=== PATIENT | male | born 1945 | race Caucasian/White ===

== ENCOUNTER 2024-11-22 17:36 | Inpatient (IN) ==
[2024-11-22] MEDS ORDERED: IOPAMIDOL 100 ML BOTTLE IV ONE (17:37)
[2024-11-22] MEDS: 0.9 % SODIUM CHLORIDE 1,000 ML IV ONE (18:20)
[2024-11-22 18:38] LABS: Basophils # (Auto) 0.02 K/mcL (0.00-0.30); Basophils % (Auto) 0.2 % (0.0-2.0); Eosinophils # (Auto) 0.07 K/mcL (0.00-0.70); Eosinophils % (Auto) 0.6 % (0.0-7.0); Hematocrit 41.8 % (40.1-51.0); Hemoglobin 13.9 g/dL (13.7-17.5); Lymphocytes # (Auto) 1.09 K/mcL (1.50-4.80); Mean Cell Volume 93.5 fL (80.0-100.0); Mean Corpuscular HGB Conc 33.3 g/dL (31.0-36.0); Mean Platelet Volume 9.3 fL (8.8-12.5); Monocytes # (Auto) 0.82 K/mcL (0.10-0.90); Monocytes % (Auto) 7.6 % (1.0-12.0); Neutrophils % (Auto) 81.3 % (38.0-78.0); Platelet Count 264 K/mcL (140-440); RBC 4.47 M/mcL (4.63-6.08); Red Cell Distribution Width 13.8 % (11.5-14.5); WBC 10.9 K/mcL (4.5-11.0)
[2024-11-22 18:39] LABS: Appearance,Urine Clear (Clear); Bilirubin,Urine Negative (Negative); Color,Urine Yellow; Glucose,Urine (UA) Negative (Negative); Ketones,Urine Negative (Negative); Leukocyte Esterase,Urine Trace /uL (Negative); Nitrate,Urine Negative (Negative); Protein,Urine Negative (Negative); Specific Gravity,Urine 1.015 (1.000-1.035); Urine Blood Negative ery/mcL (Negative); Urine RBC 1 /hpf (0-3); Urine Squamous Epithelial Cell 9 /hpf (0-4); Urine WBC 1 /hpf (0-4); Urobilinogen,Urine Normal
[2024-11-22 18:41] LABS: ALT/SGPT 43 U/L (<40); AST/SGOT 35 U/L (<40); Albumin 3.4 gm/dL (3.2-5.2); Albumin/Globulin Ratio 0.9 (1.0-2.3); Alkaline Phosphatase 65 U/L (39-117); Bilirubin,Total 0.5 mg/dL (0.1-1.0); Blood Urea Nitrogen 10 mg/dL (8-23); Calcium 8.8 mg/dL (8.6-10.4); Carbon Dioxide 20 mmol/L (22-30); Chloride 102 mmol/L (96-108); Globulin 3.7 gm/dL (2.2-3.7); Glomerular Filtration Rate 72; Glucose 97 mg/dL (70-105); Potassium 4.2 mmol/L (3.3-5.1); Sodium 136 mmol/L (133-145)
[2024-11-22] MEDS: PIPERACILLIN SODIUM/TAZOBACTAM 3.375 GM in DEXTROSE 5% IN WATER 50 ML IV ONE (20:34)
[2024-11-22] MEDS: KETOROLAC 15 MG/ML VIAL IV ONE (20:35)
[2024-11-22] MEDS: ACETAMINOPHEN 325 MG TABLET PO ONE (20:35)
[2024-11-22] MEDS: VANCOMYCIN 1 GM VIAL IP SCH (21:05)
[2024-11-22] MEDS: VANCOMYCIN 1,000 MG in 0.9 % SODIUM CHLORIDE 250 ML IV ONE (21:17)
[2024-11-23] MEDS ORDERED: SENNOSIDES 1 TABLET PO PRN (00:13)
[2024-11-23] MEDS ORDERED: LACTULOSE 20 GM/30 ML ORAL.SOL PO PRN (00:13)
[2024-11-23] MEDS ORDERED: ONDANSETRON 4 MG/2 ML VIAL IV PRN (00:13)
[2024-11-23] MEDS: 0.9 % SODIUM CHLORIDE 1,000 ML IV SCH (00:25)
[2024-11-23] MEDS: CEFEPIME 1 GM VIAL ONE (00:38)
[2024-11-23] MEDS: VANCOMYCIN PER PHARMACY IV ONE (00:39)
[2024-11-23] MEDS: CEFEPIME 2 GM VIAL IV SCH ×2 (00:39→08:48)
[2024-11-23] MEDS: 0.9 % SODIUM CHLORIDE 10 ML SYRINGE IV SCH (05:03)
[2024-11-23 05:44] LABS: Basophils # (Auto) 0.04 K/mcL (0.00-0.30); Basophils % (Auto) 0.5 % (0.0-2.0); Eosinophils % (Auto) 1.2 % (0.0-7.0); Hematocrit 38.8 % (40.1-51.0); Hemoglobin 12.8 g/dL (13.7-17.5); Lymphocytes # (Auto) 1.15 K/mcL (1.50-4.80); Lymphocytes % (Auto) 14.3 % (15.5-49.0); Mean Cell Volume 94.2 fL (80.0-100.0); Mean Platelet Volume 9.6 fL (8.8-12.5); Monocytes # (Auto) 0.69 K/mcL (0.10-0.90); Monocytes % (Auto) 8.6 % (1.0-12.0); Platelet Count 217 K/mcL (140-440); RBC 4.12 M/mcL (4.63-6.08); Red Cell Distribution Width 13.9 % (11.5-14.5)
[2024-11-23 06:01] LABS: ALT/SGPT 36 U/L (<40); AST/SGOT 26 U/L (<40); Albumin 3.1 gm/dL (3.2-5.2); Albumin/Globulin Ratio 0.9 (1.0-2.3); Alkaline Phosphatase 52 U/L (39-117); Bilirubin,Direct 0.2 mg/dL (<0.3); Bilirubin,Total 0.4 mg/dL (0.1-1.0); Blood Urea Nitrogen 12 mg/dL (8-23); Calcium 8.2 mg/dL (8.6-10.4); Carbon Dioxide 20 mmol/L (22-30); Chloride 107 mmol/L (96-108); Globulin 3.3 gm/dL (2.2-3.7); Glomerular Filtration Rate 72; Glucose 104 mg/dL (70-105); Lactate Dehydrogenase 182 U/L (135-225); Phosphorous 2.2 mg/dL (2.5-4.5); Potassium 3.7 mmol/L (3.3-5.1); Sodium 139 mmol/L (133-145); Triglycerides 101 mg/dL (<150); Uric Acid 5.3 mg/dL (2.5-8.0)
[2024-11-23] MEDS ORDERED: VANCOMYCIN PER PHARMACY IV SCH (07:45)
[2024-11-23] MEDS ORDERED: METHOCARBAMOL 750 MG TABLET PO PRN (08:00)
[2024-11-23] MEDS ORDERED: NAPROXEN 500 MG TABLET PO SCH (08:00)
[2024-11-23] MEDS ORDERED: PRAMIPEXOLE 0.25 MG TABLET PO SCH (08:00)
[2024-11-23] MEDS: DOCUSATE SODIUM 100 MG CAPSULE PO SCH (08:48)
[2024-11-23] MEDS: METOPROLOL SUCCINATE 50 MG TAB.XL.24H PO SCH (08:49)
[2024-11-23] MEDS: ATORVASTATIN 20 MG TABLET PO SCH (08:49)
[2024-11-23] MEDS: APIXABAN 5 MG TABLET PO SCH (08:49)
[2024-11-23] MEDS: GABAPENTIN 300 MG CAPSULE PO SCH (08:49)
[2024-11-23] MEDS: VANCOMYCIN 1,250 MG in 0.9 % SODIUM CHLORIDE 500 ML IV SCH (08:52)
[2024-11-23] MEDS: ACETAMINOPHEN 325 MG TABLET PO PRN (20:05)
[2024-11-23] MEDS: TAMSULOSIN 0.4 MG CAPSULE PO SCH (20:06)
[2024-11-23] MEDS: ZOLPIDEM 5 MG TABLET PO PRN (20:06)
[2024-11-24 06:14] LABS: Basophils # (Auto) 0.03 K/mcL (0.00-0.30); Basophils % (Auto) 0.4 % (0.0-2.0); Eosinophils # (Auto) 0.15 K/mcL (0.00-0.70); Eosinophils % (Auto) 2.1 % (0.0-7.0); Hematocrit 38.2 % (40.1-51.0); Hemoglobin 12.3 g/dL (13.7-17.5); Lymphocytes # (Auto) 1.48 K/mcL (1.50-4.80); Lymphocytes % (Auto) 20.9 % (15.5-49.0); Mean Cell Volume 95.5 fL (80.0-100.0); Mean Corpuscular HGB Conc 32.2 g/dL (31.0-36.0); Mean Platelet Volume 10.1 fL (8.8-12.5); Monocytes # (Auto) 0.58 K/mcL (0.10-0.90); Monocytes % (Auto) 8.2 % (1.0-12.0); Neutrophils % (Auto) 68.1 % (38.0-78.0); Platelet Count 223 K/mcL (140-440); Red Cell Distribution Width 13.9 % (11.5-14.5); WBC 7.1 K/mcL (4.5-11.0)
[2024-11-24 07:17] LABS: ALT/SGPT 31 U/L (<40); AST/SGOT 31 U/L (<40); Albumin 2.9 gm/dL (3.2-5.2); Albumin/Globulin Ratio 0.9 (1.0-2.3); Alkaline Phosphatase 52 U/L (39-117); Bilirubin,Direct < 0.2 mg/dL (0-0.3); Bilirubin,Total 0.2 mg/dL (0.1-1.0); Blood Urea Nitrogen 8 mg/dL (8-23); Calcium 8.4 mg/dL (8.6-10.4); Carbon Dioxide 20 mmol/L (22-30); Chloride 114 mmol/L (96-108); Globulin 3.4 gm/dL (2.2-3.7); Glomerular Filtration Rate 82; Glucose 90 mg/dL (70-105); Lactate Dehydrogenase 249 U/L (135-225); Phosphorous 2.7 mg/dL (2.5-4.5); Potassium 4.2 mmol/L (3.3-5.1); Sodium 144 mmol/L (133-145); Triglycerides 107 mg/dL (<150); Uric Acid 4.8 mg/dL (2.5-8.0)
[2024-11-24] MEDS: FLU VACC TS2024-25(65YR UP)/PF 180 MCG/0.5 ML SYRINGE IM ONE (09:29)
[2024-11-24] MEDS: cefTRIAXone 2 GM in DEXTROSE 5% IN WATER 50 ML IV SCH (11:20)
[2024-11-24] MEDS: AMPICILLIN SODIUM 2 GM in 0.9 % SODIUM CHLORIDE 100 ML IV SCH (11:51)
[2024-11-25 06:51] LABS: Basophils # (Auto) 0.04 K/mcL (0.00-0.30); Basophils % (Auto) 0.5 % (0.0-2.0); Eosinophils % (Auto) 2.5 % (0.0-7.0); Hematocrit 39.5 % (40.1-51.0); Hemoglobin 12.7 g/dL (13.7-17.5); Lymphocytes # (Auto) 1.54 K/mcL (1.50-4.80); Lymphocytes % (Auto) 19.3 % (15.5-49.0); Mean Cell Volume 97.1 fL (80.0-100.0); Mean Corpuscular HGB Conc 32.2 g/dL (31.0-36.0); Mean Platelet Volume 9.8 fL (8.8-12.5); Monocytes # (Auto) 0.58 K/mcL (0.10-0.90); Monocytes % (Auto) 7.3 % (1.0-12.0); Neutrophils % (Auto) 70.1 % (38.0-78.0); Platelet Count 254 K/mcL (140-440); RBC 4.07 M/mcL (4.63-6.08); Red Cell Distribution Width 13.7 % (11.5-14.5)
[2024-11-25 07:35] LABS: ALT/SGPT 27 U/L (<40); AST/SGOT 26 U/L (<40); Albumin/Globulin Ratio 0.9 (1.0-2.3); Alkaline Phosphatase 52 U/L (39-117); Bilirubin,Direct < 0.2 mg/dL (0-0.3); Bilirubin,Total < 0.2 mg/dL (0.1-1.0); Blood Urea Nitrogen 8 mg/dL (8-23); Calcium 8.6 mg/dL (8.6-10.4); Carbon Dioxide 19 mmol/L (22-30); Chloride 108 mmol/L (96-108); Globulin 3.4 gm/dL (2.2-3.7); Glomerular Filtration Rate 82; Glucose 100 mg/dL (70-105); Lactate Dehydrogenase 229 U/L (135-225); Sodium 141 mmol/L (133-145); Triglycerides 129 mg/dL (<150); Uric Acid 4.5 mg/dL (2.5-8.0)
[2024-11-26] MEDS ORDERED: IOPAMIDOL 100 ML BOTTLE IV ONE (14:59)
[2024-11-28 07:08] LABS: C-Reactive Protein 1.16 mg/dL (0.03-0.80)
[2024-11-28 07:09] LABS: ALT/SGPT 43 U/L (<40); AST/SGOT 41 U/L (<40); Albumin 3.2 gm/dL (3.2-5.2); Albumin/Globulin Ratio 0.9 (1.0-2.3); Alkaline Phosphatase 57 U/L (39-117); Bilirubin,Direct < 0.2 mg/dL (0-0.3); Bilirubin,Total 0.2 mg/dL (0.1-1.0); Blood Urea Nitrogen 9 mg/dL (8-23); Calcium 9.2 mg/dL (8.6-10.4); Carbon Dioxide 24 mmol/L (22-30); Chloride 108 mmol/L (96-108); Globulin 3.4 gm/dL (2.2-3.7); Glomerular Filtration Rate 82; Glucose 99 mg/dL (70-105); Lactate Dehydrogenase 200 U/L (135-225); Phosphorous 2.6 mg/dL (2.5-4.5); Sodium 143 mmol/L (133-145); Triglycerides 187 mg/dL (<150); Uric Acid 4.6 mg/dL (2.5-8.0)
[2024-11-28 07:18] LABS: Basophils # (Auto) 0.05 K/mcL (0.00-0.30); Basophils % (Auto) 0.7 % (0.0-2.0); Eosinophils # (Auto) 0.27 K/mcL (0.00-0.70); Eosinophils % (Auto) 3.9 % (0.0-7.0); Hematocrit 39.9 % (40.1-51.0); Hemoglobin 12.9 g/dL (13.7-17.5); Lymphocytes # (Auto) 1.35 K/mcL (1.50-4.80); Lymphocytes % (Auto) 19.4 % (15.5-49.0); Mean Cell Volume 96.1 fL (80.0-100.0); Mean Corpuscular HGB Conc 32.3 g/dL (31.0-36.0); Mean Platelet Volume 9.8 fL (8.8-12.5); Monocytes # (Auto) 0.55 K/mcL (0.10-0.90); Monocytes % (Auto) 7.9 % (1.0-12.0); Neutrophils % (Auto) 67.2 % (38.0-78.0); Platelet Count 245 K/mcL (140-440); RBC 4.15 M/mcL (4.63-6.08)
[2024-11-28 07:40] LABS: Erythrocyte Sedimentation Rate 61 mm/hr (0-20)
[2024-11-28] MEDS ORDERED: LIDOCAINE 1% 10 ML VIAL SQ ONE (14:09)
[2024-11-28] MEDS ORDERED: SODIUM CHLORIDE IRRIG SOLUTION 250 ML BOTTLE IRR ONE (14:09)
[2024-11-28 16:24] VITALS: TEMP 98.1; O2SAT 94
[2024-11-28] MEDS ORDERED: 0.9 % SODIUM CHLORIDE 10 ML SYRINGE IV SCH (21:00)
== END 2024-11-28 15:39 | DRG 289 ==
LOC: ED 17:36 → ICU 11-23 → MEDSUR 11-27 21:26
PROVIDERS: ADMIT Internal Medicine; ATTEND Internal Medicine

== ENCOUNTER 2025-08-10 17:29 | Inpatient (IN) ==
[2025-08-10] MEDS: cefTRIAXone 1 GM VIAL IV ONE (17:50)
[2025-08-10] MEDS: ACETAMINOPHEN 1,000 MG/100 ML BAG IV ONE (17:50)
[2025-08-10] MEDS: 0.9 % SODIUM CHLORIDE 1,000 ML IV ONE (17:52)
[2025-08-10] MEDS: IPRATROPIUM/ALBUTEROL 3 ML AMPUL.NEB NEB ONE (18:10)
[2025-08-10 18:32] LABS: ALT/SGPT 9 U/L (<40); AST/SGOT 23 U/L (<40); Albumin 4.5 gm/dL (3.2-5.2); Albumin/Globulin Ratio 1.3 (1.0-2.3); Alkaline Phosphatase 133 U/L (39-117); Anion Gap 16.2 (8.0-16.0); Bilirubin,Total 0.5 mg/dL (0.1-1.0); Blood Urea Nitrogen 7 mg/dL (8-23); Calcium 9.5 mg/dL (8.6-10.4); Carbon Dioxide 20 mmol/L (22-30); Chloride 102 mmol/L (96-108); Globulin 3.4 gm/dL (2.2-3.7); Glucose 113 mg/dL (70-105); Potassium 3.3 mmol/L (3.3-5.1); Sodium 139 mmol/L (133-145)
[2025-08-10 18:41] LABS: Basophils # (Auto) 0.03 K/mcL (0.00-0.30); Basophils % (Auto) 0.3 % (0.0-2.0); Eosinophils # (Auto) 0.04 K/mcL (0.00-0.70); Eosinophils % (Auto) 0.4 % (0.0-7.0); Hematocrit 46.6 % (40.1-51.0); Hemoglobin 15.0 g/dL (13.7-17.5); Lymphocytes # (Auto) 0.36 K/mcL (1.50-4.80); Lymphocytes % (Auto) 3.2 % (15.5-49.0); Mean Corpuscular HGB Conc 32.2 g/dL (31.0-36.0); Monocytes # (Auto) 0.62 K/mcL (0.10-0.90); Monocytes % (Auto) 5.4 % (1.0-12.0); Neutrophils % (Auto) 90.5 % (38.0-78.0); Platelet Count 201 K/mcL (140-440); RBC 4.86 M/mcL (4.63-6.08); WBC 11.4 K/mcL (4.5-11.0)
[2025-08-10] MEDS: LACTATED RINGERS 1,000 ML IV SCH (19:09)
[2025-08-10] MEDS: IPRATROPIUM/ALBUTEROL 3 ML AMPUL.NEB NEB SCH (19:14)
[2025-08-10 20:06] LABS: Bilirubin,Urine NEGATIVE (Negative); Color,Urine LT. YELLOW; Glucose,Urine (UA) NEGATIVE (Negative); Ketones,Urine NEGATIVE (Negative); Leukocyte Esterase,Urine NEGATIVE /uL (Negative); Mucus,Urine Mod /hpf; PH,Urine 5.5 (5.0-9.0); Protein,Urine NEGATIVE (Negative); Specific Gravity,Urine 1.020 (1.000-1.035); Urobilinogen,Urine 0.2 mg/dL
[2025-08-10] MEDS ORDERED: ONDANSETRON 4 MG/2 ML VIAL IV PRN (20:32)
[2025-08-10] MEDS ORDERED: ACETAMINOPHEN 1,000 MG/100 ML BAG IV PRN (20:32)
[2025-08-10] MEDS ORDERED: MAG HYDROX/AL HYDROX/SIMETH 30 ML ORAL.SUSP PO PRN (20:32)
[2025-08-10] MEDS ORDERED: SENNOSIDES 1 TABLET PO PRN (20:32)
[2025-08-10] MEDS ORDERED: POLYETHYLENE GLYCOL 3350 17 GM PACKET PO PRN (20:32)
[2025-08-10] MEDS ORDERED: METHOCARBAMOL 750 MG TABLET PO PRN (22:06)
[2025-08-10] MEDS: DOXYCYCLINE 100 MG in DEXTROSE 5% IN WATER 100 ML IV SCH (22:40)
[2025-08-10] MEDS: LACTATED RINGERS 1,000 ML IV ONE (22:41)
[2025-08-10] MEDS: 0.9 % SODIUM CHLORIDE 10 ML SYRINGE IV SCH (22:42)
[2025-08-10] MEDS: APIXABAN 5 MG TABLET PO SCH (22:44)
[2025-08-11 05:41] LABS: Basophils # (Auto) 0.01 K/mcL (0.00-0.30); Basophils % (Auto) 0.1 % (0.0-2.0); Eosinophils # (Auto) 0.01 K/mcL (0.00-0.70); Eosinophils % (Auto) 0.1 % (0.0-7.0); Hematocrit 43.7 % (40.1-51.0); Hemoglobin 13.7 g/dL (13.7-17.5); Lymphocytes # (Auto) 0.25 K/mcL (1.50-4.80); Lymphocytes % (Auto) 1.5 % (15.5-49.0); Mean Corpuscular HGB Conc 31.4 g/dL (31.0-36.0); Monocytes # (Auto) 0.47 K/mcL (0.10-0.90); Monocytes % (Auto) 2.9 % (1.0-12.0); Neutrophils % (Auto) 95.1 % (38.0-78.0); Platelet Count 184 K/mcL (140-440); RBC 4.46 M/mcL (4.63-6.08); WBC 16.4 K/mcL (4.5-11.0)
[2025-08-11 06:03] LABS: Phosphorous 3.2 mg/dL (2.5-4.5)
[2025-08-11 06:06] LABS: C-Reactive Protein 4.78 mg/dL (0.03-0.80)
[2025-08-11 06:50] LABS: Anion Gap 13.0 (8.0-16.0); Blood Urea Nitrogen 19 mg/dL (8-23); Calcium 8.8 mg/dL (8.6-10.4); Carbon Dioxide 19 mmol/L (22-30); Chloride 108 mmol/L (96-108); Glucose 175 mg/dL (70-105); Potassium 3.9 mmol/L (3.3-5.1); Sodium 140 mmol/L (133-145)
[2025-08-11] MEDS: PANTOPRAZOLE 40 MG TABLET PO SCH (07:27)
[2025-08-11] MEDS ORDERED: VANCOMYCIN PER PHARMACY IV SCH (08:30)
[2025-08-11] MEDS ORDERED: cefTRIAXone 1 GM VIAL IV SCH (09:00)
[2025-08-11] MEDS: PREGABALIN 25 MG CAPSULE PO SCH (09:13)
[2025-08-11] MEDS: cefTRIAXone 2 GM in DEXTROSE 5% IN WATER 50 ML IV SCH (09:21)
[2025-08-11] MEDS: METOPROLOL SUCCINATE 50 MG TAB.XL.24H PO SCH (10:16)
[2025-08-11] MEDS: VANCOMYCIN 1,000 MG in 0.9 % SODIUM CHLORIDE 250 ML IV SCH (10:58)
[2025-08-11] MEDS ORDERED: METHOCARBAMOL 750 MG TABLET PO PRN (11:41)
[2025-08-11] MEDS: EYE OU SCH (11:57)
[2025-08-11] MEDS: CYCLOSPORINE 0.05% OU SCH (11:57)
[2025-08-11] MEDS: TAMSULOSIN 0.4 MG CAPSULE PO SCH (20:41)
[2025-08-11] MEDS: ZOLPIDEM 5 MG TABLET PO PRN (20:41)
[2025-08-11] MEDS: ERYTHROMYCIN 0.5% EYE OINTMENT OU SCH (20:47)
[2025-08-11] MEDS ORDERED: NORTRIPTYLINE 25 MG CAPSULE PO SCH (21:00)
[2025-08-11 21:07] LABS: Basophils # (Auto) 0.01 K/mcL (0.00-0.30); Basophils % (Auto) 0.1 % (0.0-2.0); Eosinophils # (Auto) 0.02 K/mcL (0.00-0.70); Eosinophils % (Auto) 0.2 % (0.0-7.0); Hematocrit 41.3 % (40.1-51.0); Hemoglobin 13.3 g/dL (13.7-17.5); Lymphocytes # (Auto) 0.46 K/mcL (1.50-4.80); Lymphocytes % (Auto) 3.7 % (15.5-49.0); Mean Corpuscular HGB Conc 32.2 g/dL (31.0-36.0); Monocytes # (Auto) 0.54 K/mcL (0.10-0.90); Monocytes % (Auto) 4.4 % (1.0-12.0); Neutrophils % (Auto) 91.4 % (38.0-78.0); Platelet Count 176 K/mcL (140-440); RBC 4.26 M/mcL (4.63-6.08); WBC 12.3 K/mcL (4.5-11.0)
[2025-08-12] MEDS: LACTATED RINGERS 1,000 ML IV SCH (01:28)
[2025-08-12 06:23] LABS: Basophils # (Auto) 0 K/mcL (0.00-0.30); Basophils % (Auto) 0 % (0.0-2.0); Eosinophils # (Auto) 0.01 K/mcL (0.00-0.70); Eosinophils % (Auto) 0.1 % (0.0-7.0); Hematocrit 44.5 % (40.1-51.0); Hemoglobin 13.1 g/dL (13.7-17.5); Lymphocytes # (Auto) 1.09 K/mcL (1.50-4.80); Lymphocytes % (Auto) 10.3 % (15.5-49.0); Mean Corpuscular HGB Conc 29.4 g/dL (31.0-36.0); Monocytes # (Auto) 1.02 K/mcL (0.10-0.90); Monocytes % (Auto) 9.6 % (1.0-12.0); Neutrophils % (Auto) 79.8 % (38.0-78.0); Platelet Count 154 K/mcL (140-440); RBC 4.20 M/mcL (4.63-6.08); WBC 10.6 K/mcL (4.5-11.0)
[2025-08-12 06:46] LABS: Phosphorous 2.7 mg/dL (2.5-4.5)
[2025-08-12 06:47] LABS: C-Reactive Protein 3.57 mg/dL (0.03-0.80)
[2025-08-12 07:49] LABS: Anion Gap 9.0 (8.0-16.0); Blood Urea Nitrogen 17 mg/dL (8-23); Calcium 8.6 mg/dL (8.6-10.4); Carbon Dioxide 21 mmol/L (22-30); Chloride 110 mmol/L (96-108); Glucose 99 mg/dL (70-105); Potassium 4.4 mmol/L (3.3-5.1); Sodium 140 mmol/L (133-145)
[2025-08-12] MEDS: CEFEPIME 2 GM VIAL IV SCH (11:18)
[2025-08-12] MEDS: IPRATROPIUM/ALBUTEROL 3 ML AMPUL.NEB NEB SCH (12:18)
[2025-08-12] MEDS: DICYCLOMINE 20 MG TABLET PO SCH (15:11)
[2025-08-12] MEDS: IPRATROPIUM/ALBUTEROL 3 ML AMPUL.NEB NEB PRN (19:43)
[2025-08-12] MEDS: PRAMIPEXOLE 0.25 MG TABLET PO SCH (22:37)
[2025-08-13] MEDS ORDERED: ACETAMINOPHEN 325 MG TABLET PO PRN
[2025-08-13 07:42] LABS: C-Reactive Protein 1.52 mg/dL (0.03-0.80)
[2025-08-13 07:56] LABS: ALT/SGPT 63 U/L (<40); AST/SGOT 43 U/L (<40); Albumin 3.6 gm/dL (3.2-5.2); Albumin/Globulin Ratio 1.3 (1.0-2.3); Alkaline Phosphatase 55 U/L (39-117); Anion Gap 15.0 (8.0-16.0); Bilirubin,Direct < 0.2 mg/dL (0-0.3); Bilirubin,Total 0.2 mg/dL (0.1-1.0); Blood Urea Nitrogen 16 mg/dL (8-23); Calcium 9.0 mg/dL (8.6-10.4); Carbon Dioxide 20 mmol/L (22-30); Chloride 110 mmol/L (96-108); Globulin 2.8 gm/dL (2.2-3.7); Glucose 105 mg/dL (70-105); Phosphorous 3.0 mg/dL (2.5-4.5); Potassium 3.8 mmol/L (3.3-5.1); Sodium 145 mmol/L (133-145); Triglycerides 131 mg/dL (<150); Uric Acid 5.5 mg/dL (2.5-8.0)
[2025-08-14 06:18] LABS: Basophils # (Auto) 0.02 K/mcL (0.00-0.30); Basophils % (Auto) 0.2 % (0.0-2.0); Eosinophils # (Auto) 0 K/mcL (0.00-0.70); Eosinophils % (Auto) 0 % (0.0-7.0); Hematocrit 40.7 % (40.1-51.0); Hemoglobin 13.2 g/dL (13.7-17.5); Lymphocytes # (Auto) 1.23 K/mcL (1.50-4.80); Lymphocytes % (Auto) 10.5 % (15.5-49.0); Mean Corpuscular HGB Conc 32.4 g/dL (31.0-36.0); Monocytes # (Auto) 0.85 K/mcL (0.10-0.90); Monocytes % (Auto) 7.3 % (1.0-12.0); Neutrophils % (Auto) 80.7 % (38.0-78.0); Platelet Count 180 K/mcL (140-440); RBC 4.21 M/mcL (4.63-6.08); WBC 11.7 K/mcL (4.5-11.0)
[2025-08-14 06:36] LABS: ALT/SGPT 59 U/L (<40); AST/SGOT 32 U/L (<40); Albumin 3.5 gm/dL (3.2-5.2); Albumin/Globulin Ratio 1.3 (1.0-2.3); Alkaline Phosphatase 57 U/L (39-117); Anion Gap 8.0 (8.0-16.0); Bilirubin,Direct < 0.2 mg/dL (0-0.3); Bilirubin,Total 0.2 mg/dL (0.1-1.0); Blood Urea Nitrogen 18 mg/dL (8-23); C-Reactive Protein 0.57 mg/dL (0.03-0.80); Calcium 8.7 mg/dL (8.6-10.4); Carbon Dioxide 24 mmol/L (22-30); Chloride 109 mmol/L (96-108); Globulin 2.7 gm/dL (2.2-3.7); Glucose 113 mg/dL (70-105); Phosphorous 3.1 mg/dL (2.5-4.5); Potassium 3.9 mmol/L (3.3-5.1); Sodium 141 mmol/L (133-145); Triglycerides 101 mg/dL (<150); Uric Acid 5.1 mg/dL (2.5-8.0)
[2025-08-14] MEDS ORDERED: IOPAMIDOL 100 ML BOTTLE IV ONE (09:05)
[2025-08-14] MEDS: MEROPENEM 1 GM in 0.9 % SODIUM CHLORIDE 50 ML IV SCH (10:08)
[2025-08-15 05:59] LABS: Basophils # (Auto) 0.01 K/mcL (0.00-0.30); Basophils % (Auto) 0.1 % (0.0-2.0); Eosinophils # (Auto) 0.01 K/mcL (0.00-0.70); Eosinophils % (Auto) 0.1 % (0.0-7.0); Hematocrit 44.2 % (40.1-51.0); Hemoglobin 13.8 g/dL (13.7-17.5); Lymphocytes # (Auto) 1.40 K/mcL (1.50-4.80); Lymphocytes % (Auto) 14.6 % (15.5-49.0); Mean Corpuscular HGB Conc 31.2 g/dL (31.0-36.0); Monocytes # (Auto) 0.58 K/mcL (0.10-0.90); Monocytes % (Auto) 6.0 % (1.0-12.0); Neutrophils % (Auto) 77.1 % (38.0-78.0); Platelet Count 199 K/mcL (140-440); RBC 4.44 M/mcL (4.63-6.08); WBC 9.6 K/mcL (4.5-11.0)
[2025-08-15 06:13] LABS: ALT/SGPT 72 U/L (<40); AST/SGOT 43 U/L (<40); Albumin 3.4 gm/dL (3.2-5.2); Albumin/Globulin Ratio 1.3 (1.0-2.3); Alkaline Phosphatase 58 U/L (39-117); Anion Gap 9.0 (8.0-16.0); Bilirubin,Direct < 0.2 mg/dL (0-0.3); Bilirubin,Total 0.3 mg/dL (0.1-1.0); Blood Urea Nitrogen 19 mg/dL (8-23); Calcium 8.6 mg/dL (8.6-10.4); Carbon Dioxide 23 mmol/L (22-30); Chloride 108 mmol/L (96-108); Globulin 2.7 gm/dL (2.2-3.7); Glucose 108 mg/dL (70-105); Phosphorous 3.0 mg/dL (2.5-4.5); Potassium 4.3 mmol/L (3.3-5.1); Sodium 140 mmol/L (133-145); Triglycerides 132 mg/dL (<150); Uric Acid 4.9 mg/dL (2.5-8.0)
[2025-08-16] MEDS ORDERED: PRAMIPEXOLE 0.25 MG TABLET PO PRN (11:29)
[2025-08-16] MEDS: PRAMIPEXOLE 0.25 MG TABLET PO SCH (21:09)
[2025-08-17] MEDS: HEPARIN 10 UNITS/ML 5ML FLUSH IV SCH ×2 (13:17→20:17)
[2025-08-17] MEDS: HEPARIN 10 UNITS/ML 5ML FLUSH ONE (13:37)
[2025-08-17] MEDS: 0.9 % SODIUM CHLORIDE 10 ML SYRINGE IV SCH (20:17)
[2025-08-18 15:41] VITALS: TEMP 98.7; O2SAT 98
== END 2025-08-18 16:50 | disposition home or self-care (01) | DRG 189 ==
LOC: ED 17:29 → ICU 20:31 → MEDSUR 08-11 14:51
PROVIDERS: ADMIT Student in an Organized Health Care Education/Training Program; ATTEND Internal Medicine